=== PATIENT | female | born 1995 ===

== ENCOUNTER 2021-04-26 05:45 | Emergency (ER) | payer OTHER ==
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
[2021-04-26 08:16] VITALS: BP 98/64
== END 2021-04-26 08:16 | disposition home or self-care (01) ==
LOC: ED 05:45
DX: Z04.1 Encounter for examination and observation following transport accident (principal); V49.40XA Driver injured in collision with unspecified motor vehicles in traffic accident, initial encounter; Y93.89 Activity, other specified; Y92.89 Other specified places as the place of occurrence of the external cause; Y99.8 Other external cause status
CPT/HCPCS: 70450; 72125; 99283